=== PATIENT | female | born 1965 | race Caucasian/White ===

== ENCOUNTER → 2019-12-11 | Outpatient (CLI) | payer BC ==
--- NOTE | 2019-12-11 16:55 | Diagnostic Imaging Report ---
INDICATION: Lateral knee pain for a week, unknown if injured. EXAMINATION: Left knee, 12/11/2019. FINDINGS: Three views of the knee. There is a questionable nondisplaced fracture of the fibular head, correlate for point tenderness. Remaining osseous structures are intact. There is a small joint effusion. No dislocation. IMPRESSION: 1. Questionable nondisplaced fibular head fracture. 2. Joint effusion. Report was faxed to the office of Daylin Velasquez APRN at 4:45 p.m., by ulices (for AG). Dictated by: Dictated on workstation # [id number]
== END ==
LOC: RAD FS 16:05
PROVIDERS: ATTEND Nurse Practitioner Family
DX: M25.462 Effusion, left knee (principal)
CPT/HCPCS: 73562

== ENCOUNTER → 2020-02-18 | Outpatient (CLI) | payer BC ==
--- NOTE | 2020-02-18 19:29 | Diagnostic Imaging Report ---
PROCEDURE: MRI left joint lower extremity without contrast. TECHNIQUE: Multiplanar, multisequence non contrast-enhanced MRI of the left lower extremity was accomplished. INDICATION: Internal derangement, abnormal prior imaging, pain. COMPARISON: Radiograph dated 12/11/2019. FINDINGS: Increased signal intensity within the posterior horn of the medial meniscus is present, though this appears to be intrasubstance and not extend to the articular surface. The lateral meniscus is unremarkable. The ACL and PCL are intact. The MCL and LCL are intact. Extensor mechanism is intact. Small knee joint effusion. No significant Garces's cyst. Mild prepatellar subcutaneous edema. Bone marrow signal intensity is unremarkable. In particular, no significant marrow edema within the fibular head. Mild cartilaginous thinning within both the medial and lateral compartment with associated minimal tricompartmental osteophytosis. IMPRESSION: 1. No recent fracturing of the fibular head. 2. Degenerative signal within the posterior horn of the medial meniscus without meniscal tear. 3. Mild to moderate degenerative changes. 4. Small knee joint effusion. Dictated by: Dictated on workstation # [id number]
== END ==
LOC: RAD 16:12
PROVIDERS: ATTEND Nurse Practitioner
DX: M23.322 Other meniscus derangements, posterior horn of medial meniscus, left knee (principal)
CPT/HCPCS: 73721

== ENCOUNTER → 2020-10-13 | Outpatient (CLI) | payer BC ==
[~2020-10-13] MED LIST: ACHD5005 PO; CATHETER FLUSH 10 ML SYR IV PRN; DOCU-143 PO; HOLD METFORMIN - RECEIVED CONTRAST 20 ML VIAL IV SCH; IOHEXOL 350 MG/ML 100 ML (OMNIPAQUE 350) VIAL IV ONE; NS 100 ML (IVPB) BAG IV ONE
[2020-10-13 14:59] LABS: BUN/CREATININE RATIO 22; CREATININE SERUM 0.77 MG/DL (0.60-1.30); GFR ESTIMATED > 60
--- NOTE | 2020-10-13 16:24 | Diagnostic Imaging Report ---
INDICATION: Followup on left upper quadrant cyst seen on prior study. TECHNIQUE: Multiple contiguous axial images were obtained through the abdomen and pelvis after administration of intravenous contrast. Auto Exposure Controls were utilized during the CT exam to meet ALARA standards for radiation dose reduction. All CT scans use one or more of the following dose optimizing techniques: automated exposure control, MA and/or KvP adjustment based on patient size and exam type or iterative reconstruction. CT abdomen and pelvis is compared to prior study of 07/11/2020 The visualized portions of the lung bases are clear. There were no pleural fluid collections. There is no free intraperitoneal air. The liver shows no focal lesion. Gallbladder appears normal. Spleen, adrenals, and pancreas appear unremarkable. The kidneys bilaterally appear normal. The cystic lesions just medial to the splenic hilum are essentially unchanged. The more anterior lesion measuring about 5.7 cm transversely. The more posterior lesion measures about 2.1 cm in AP diameter. There is no retroperitoneal mass or adenopathy. No ascites or abnormal fluid present. Visualized bowel loops are not distended or thickened. Compared to the prior study, the appendix has been removed. IMPRESSION: Stable appearance of cystic lesion in the left upper quadrant compared to 07/11/2020. These findings are of uncertain significance, could represent duplication cyst or result of previous pancreatitis. They are however stable compared to 07/11/2020, 6-12 month followup is suggested. Dictated by: Dictated on workstation # [id number]
== END ==
LOC: RAD FS 13:42
PROVIDERS: ATTEND Surgery
DX: R19.02 Left upper quadrant abdominal swelling, mass and lump (principal); G44.52 New daily persistent headache (NDPH); Z84.89 Family history of other specified conditions
CPT/HCPCS: 36415; 74177; 82565; 84520

== ENCOUNTER → 2021-05-16 | Outpatient (CLI) | payer BC ==
[~2021-05-16] MED LIST changes: -IOHEXOL 350 MG/ML 100 ML (OMNIPAQUE 350) VIAL IV ONE; +IOHEXOL 350 MG/ML 150 ML (OMNIPAQUE 350) VIAL IV ONE
[2021-05-16 09:34] LABS: CREATININE SERUM 0.71 MG/DL (0.60-1.30)
--- NOTE | 2021-05-16 10:24 | Diagnostic Imaging Report ---
EXAMINATION: CT abdomen and pelvis with intravenous contrast. TECHNIQUE: Multiple contiguous axial images were obtained through the abdomen and pelvis after the uneventful administration of intravenous contrast. All CT scans use one or more of the following dose optimizing techniques: automated exposure control, MA and/or KvP adjustment based on patient size and exam type or iterative reconstruction. HISTORY: Right upper quadrant pain. Follow-up cysts in the left upper quadrant. COMPARISON: 10/13/2020. FINDINGS: The heart is unremarkable. The included lung bases are clear. The liver, spleen, pancreas, adrenal glands, and kidneys have a normal appearance. Benign-appearing cysts in the left upper quadrant are stable in size. There is no pathologically enlarged mesenteric or retroperitoneal adenopathy. The bowel loops are nondilated. The appendix is surgically absent. There is no free fluid or free air. No acute osseous abnormalities. There is calcified aortic and iliac atherosclerotic plaque without aneurysm. Ureters and bladder are grossly normal. There is no free air, loculated collection, or adenopathy in the pelvis. IMPRESSION: 1. No acute abnormality in the abdomen and pelvis. No bowel obstruction, free fluid, or free air. 2. Stable benign-appearing cysts in the left upper quadrant. Findings may represent duplication cysts or sequelae of prior pancreatitis. Dictated by: Dictated on workstation # [id number]
== END ==
LOC: RAD FS 08:51
PROVIDERS: ATTEND Surgery
DX: R10.10 Upper abdominal pain, unspecified (principal)
CPT/HCPCS: 36415; 74177; 82565; 84520